=== PATIENT | male | born 1960 | race Caucasian/White ===

== ENCOUNTER 2024-03-04 15:08 | Emergency (ER) | payer OTHER ==
[~2024-03-04] VITALS: Ht 177.8 cm; Wt 85.0 kg
[2024-03-04 15:10] VITALS: BP 142/97; PULSE 84; RESP 14; TEMP 98.4; O2SAT 98
[2024-03-04 17:39] LABS: BASOPHILS % 0.2 % (0.0-2.0); EOSINOPHILS % 0.5 % (0.0-5.0); HEMATOCRIT. 51.6 % (42.0-52.0); HEMOGLOBIN. 18.1 g/dL (14.0-18.0); LYMPHOCYTES % 15.2 % (20.0-50.0); MEAN CORPUSCULAR HEMOGLOBIN 31.3 pg (28.0-32.0); MEAN CORPUSCULAR HGB CONC 35.1 g/dL (31.0-37.0); MEAN CORPUSCULAR VOLUME 89.2 fL (80.0-94.0); MEAN PLATELET VOLUME 9.2 fl (7.4-10.4); NEUTROPHILS % 78.1 % (40.0-76.0); PLATELET 210 x1000/uL (130-400); RED BLOOD CELL COUNT 5.78 mill/uL (4.7-6.1); RED CELL DISTRIBUTION WIDTH 13.7 % (11.6-14.6); WHITE BLOOD COUNT 9.5 x1000/uL (4.5-11.0)
[2024-03-04 17:44] LABS: CHLORIDE 105 mEq/L (98-107); POTASSIUM 4.2 mEq/L (3.5-5.1); SODIUM 142 mEq/L (136-145)
[2024-03-04 17:45] LABS: CARBON DIOXIDE 30 mEq/L (21-32)
[2024-03-04 17:46] LABS: CALCIUM 11.2 mg/dL (8.7-10.4)
[2024-03-04 17:50] LABS: CREATININE 1.2 mg/dL (0.6-1.3); GLUCOSE 103 mg/dL (70-105); UREA NITROGEN BLOOD 7 mg/dL (9-23)
[2024-03-04] MEDS: SODIUM CHLORIDE 0.9% 1,000 ML IV ONE (21:34)
[2024-03-04] MEDS: ONDANSETRON HCL 4MG/2ML INJ IV STA (21:34)
[2024-03-04 22:14] LABS: CLARITY URINE CLOUDY (CLEAR); COLOR URINE DARK YELLOW (YELLOW); GLUCOSE URINE NEGATIVE (NEGATIVE); KETONES URINE 1+ (NEGATIVE); LEUKOCYTE ESTERASE URINE NEGATIVE (NEGATIVE); NITRITE URINE NEGATIVE (NEGATIVE); OCCULT BLOOD URINE NEGATIVE (NEGATIVE); PH URINE 5.5 (4.5-8.0); PROTEIN URINE 1+ (NEGATIVE); SPECIFIC GRAVITY URINE 1.026 (1.005-1.030)
[2024-03-04 22:47] LABS: BACTERIA URINE 2+; RBC URINE 0-2 /hpf (0-2); SQUAMOUS EPITHELIAL CELL URINE FEW /lpf (RARE/1+); WBC URINE 0-2 /hpf (0-2)
[2024-03-04 22:48] LABS: MUCUS URINE 2+ /lpf (NONE/TRACE)
[2024-03-04] MEDS ORDERED: ONDA4TAB50 MT (22:57)
[2024-03-04] MEDS: ONDANSETRON 4MG ODT PO ONE (23:00)
== END 2024-03-04 23:25 | disposition home or self-care (01) ==
LOC: ER 15:47
DX: K52.9 Noninfective gastroenteritis and colitis, unspecified (principal)
CPT/HCPCS: 99285; 74176; 96374; 96361; 80048; 81003; 85025; 36415; Q0162; J2405; J7030